=== PATIENT | female | born 1935 | race Caucasian/White ===

== ENCOUNTER 2020-12-10 15:40 | Outpatient (CLI) | payer MEDICARE, SELFPAY ==
--- NOTE | ~2020-12-10 | XR_ITS ---
EXAMINATION: XR scanogram DATE: 12/10/2020 16:35 INDICATION: Limb length discrepancy. TECHNIQUE: Standing AP view of the bilateral lower extremities from the pelvis through the ankles wer e obtained on overlapping images. COMPARISON: None. FINDINGS: Bone alignment is normal. No leg length discrepancy with <2 mm difference in the levels of the bilate ral hip, knee and ankle joints. No fractures or suspected avascular necrosis. 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 Likely f ixation screws project over the left hindfoot. Surgical clip and single calcified phlebolith in the l eft hemipelvis. Mild osteitis pubis. IMPRESSION: 1. Normal alignment with no significant leg length discrepancy. Reviewed, dictated and finalized at location A.
== END 2020-12-10 15:41 | disposition home or self-care (01) ==
LOC: ANHIMG 15:46
PROVIDERS: PCP Internal Medicine; Visit Provider Podiatrist Foot & Ankle Surgery
DX: M79.89 Other specified soft tissue disorders (principal)
CPT/HCPCS: 77073

== ENCOUNTER 2023-01-11 12:49 | Outpatient (CLI) | payer MEDICARE, SELFPAY | END 2023-01-11 12:50 | disposition home or self-care (01) | LOC: CHSLAB 12:55 | PROVIDERS: PCP Internal Medicine; Visit Provider Specialist | DX: C44.722 Squamous cell carcinoma of skin of right lower limb, including hip (principal) | CPT/HCPCS: 88305 ==

== ENCOUNTER 2023-07-27 13:33 | Outpatient (RCR) | payer MEDICARE, SELFPAY ==
--- NOTE | 2023-07-27 14:32 | OPREHPOC ---
Outpatient Therapy Plan of Care This is a Multidisciplinary Plan of Care that may contain components documented by all disciplines (PT, OT, and ST.) PT Problem 1 PT Problem #1 Knowledge Deficit PT Goal 1 Goal 1. independent and compliant with HEP Target Visit 2 PT Problem 2 PT Problem #2 Impaired Strength PT Goal 1 Goal 1. improve bilateral hip strength to 4+/5 or better overall in seated 2. improve bilateral knee strength to 5/5 overall 3. improve bilateral ankle DF to 5/5 Target Visit 4 PT Problem 3 PT Problem #3 Impaired Functional Mobil PT Goal 1 Goal 1. tinetti to display low fall risk 2. patient to complete 5x sit to mine supervisor 10 seconds or less 3. patient to complete TUG in less than 10 seconds 4. patient report no falls 5. patient to ambulate 1100ft or more in 6 minutes without AD Target Visit 4
--- NOTE | 2023-07-27 14:32 | PTOPEVAL1 ---
Assessment and note entered by JT File, PT Evaluation Information Assessment Status Evaluation Diagnosis unsteady gait, gait instability, weakness Onset 07/21/23 Subjective Information patient reports has weakness in her legs. she reports she has to push up from her chair with her arms to stand, and reports her family is worried she is getting weak. she reports she is hoping to get stronger. she reports she has had no falls. she does use a cane/walking stick outside. she reports she also notices that her balance is poor. she reports she does live alone. she reports she has steps to get into the house, but does have a basement. she reports she does go down to the basement from time to time. she reports she has rails on both sides. she reports she does not have any throw rugs in the house. she reports she does have issues with the R ankle that she has just brought up to the MD. she reports at times she will have pain in the R hip. Reported Pain Level Pain Score 2: Self Report Assessment PT Clinical Summary mrs. licea is an 88 yo woman who is admitted to skilled PT for evaluation and treatment of unsteady gait and weakness. she displays moderate fall risk per the tinetti, weakness of the bilateral LE's (especially the hips), and deficits in functional activities/independent. continued skilled PT is indicated to improve patient objective/functional deficits to achieve her goals and return to prior level functional activity performance/quality of life. Plan of Care Interventions Gait Training,Neuro Re-education,Patient/Caregiver Educati,Therapeutic Activities,Therapeutic Exercise PT Services Indicated Yes Treatment Frequency and 2x weekly for 4 visits Duration These treatments will address the objective and functional deficits as defined above. The patient will be advanced safely and appropriately in order for the patient to progress towards his/her prior level of function. Additional exercises will be introduced and as well as a comprehensive home exercise program upon discharge, if needed, ?to ensure carryover of functional gains achieved in the clinic. This treatment plan has been reviewed and agreement upon by the patient.
--- NOTE | 2023-08-04 11:45 | OPREHPOC ---
Outpatient Therapy Plan of Care This is a Multidisciplinary Plan of Care that may contain components documented by all disciplines (PT, OT, and ST.) PT Problem 1 PT Problem #1 Knowledge Deficit PT Goal 1 Goal 1. independent and compliant with HEP Target Visit 2 Progress Met PT Problem 2 PT Problem #2 Impaired Strength PT Goal 1 Goal 1. improve bilateral hip strength to 4+/5 or better overall in seated. not met 2. improve bilateral knee strength to 5/5 overall. not met 3. improve bilateral ankle DF to 5/5. met Target Visit 4 Progress Partially Met PT Problem 3 PT Problem #3 Impaired Functional Mobil PT Goal 1 Goal 1. tinetti to display low fall risk. met 2. patient to complete 5x sit to package winder 10 seconds or less. met 3. patient to complete TUG in less than 10 seconds . not met 4. patient report no falls. met 5. patient to ambulate 1100ft or more in 6 minutes without AD. met Target Visit 4 Progress Partially Met
--- NOTE | 2023-08-04 11:45 | PTOPDC ---
Assessment and note entered by JT File, PT Evaluation Information Assessment Status Discharge Diagnosis unsteady gait, gait instability, weakness Onset 07/21/23 Subjective Information patient reports she feels she is doing well. she reports she has not had any falls. she reports she does do her exercises well in therapy, but struggles to do them on her own at home. she has joined the gym at [employer], but has not gone yet. Reported Pain Level Pain Score 2: Self Report Pain Score 2: Self Report Assessment PT Clinical Summary mrs. licea presents to skilled PT services today for her 4th skilled therapy visit. she has improved in bilateral LE strength, balance, ambulation speed, and transfer independence/safety . she has met goals for HEP performance, ankle strength, 6 minute walk test, tinetti score, 5x sit to stand score, and has had no falls. she will be DC from skilled PT today, but was educated on the benefits of attending 2x weekly fall prevention class on her own, and continuing with HEP at least 1x independent through the week. Plan of Care PT Services Indicated Yes
== END 2023-08-04 12:44 | disposition home or self-care (01) ==
LOC: CHSPT 13:33
PROVIDERS: Visit Provider Family Medicine
DX: R26.81 Unsteadiness on feet (principal)
CPT/HCPCS: 97112; 97161; 97530